=== PATIENT | male | born 1955 | race Hispanic/Latino ===

== ENCOUNTER 2017-07-26 06:27 | Day surgery (SDC) | payer BC ==
[2017-07-24 15:47] VITALS: BP 136/69
[2017-07-24 16:13] LABS: CREATININE 1.1 mg/dL (0.5-1.5); POTASSIUM 3.5 mmol/L (3.5-5.1)
[2017-07-26] VITALS (17 sets, daily range): BP systolic 109–161; BP diastolic 71–86
[~2017-07-26] VITALS: Ht 171.4 cm; Wt 76.9 kg
[2017-07-26] MEDS: CEFTRIAXONE SODIUM 1 GM IVP SCH ×2 (06:00→08:10)
[~2017-07-26 06:27] MED LIST: AMLO1CAP10 PO; ASPI-555 PO; HYDR12.54 PO; METF500T6 PO; OMEG1CAP31 PO; POTASSIUM PO; ROSU5TAB PO
[2017-07-26] MEDS ORDERED: SODIUM CHLORIDE 0.9% 1000ML 1,000 ML IV ONE (07:11)
[2017-07-26] MEDS ORDERED: DEXAMETHASONE SOD PHOSPHATE 10MG/ML 1ML VIAL ONE ×2 (07:13→09:02)
[2017-07-26] MEDS ORDERED: PROPOFOL 10 MG/ML 20ML VIAL IV ONE (07:13)
[2017-07-26] MEDS ORDERED: MIDAZOLAM HCL 1 MG/ML 2ML VIAL ONE (07:13)
[2017-07-26] MEDS ORDERED: GLYCOPYRROLATE 0.2 MG/ML 5 ML VIAL ONE ×2 (07:13→09:02)
[2017-07-26] MEDS ORDERED: LIDOCAINE PF 2% 5ML ABBOJECT ONE (07:13)
[2017-07-26] MEDS ORDERED: FENTANYL CITRATE PF 50 MCG/1 ML 2ML VIAL ONE ×2 (07:16→09:00)
[2017-07-26] MEDS ORDERED: FOLI0.8T PO (07:31)
[2017-07-26] MEDS ORDERED: MULT-1289 PO (07:31)
[2017-07-26] MEDS ORDERED: ALFU10TA18 PO (07:31)
[2017-07-26] MEDS ORDERED: ONDANSETRON HCL MDV 20ML 2 MG/ML VIAL ONE (09:02)
[2017-07-26] MEDS ORDERED: OPIUM/BELLADONNA ALKALOIDS 1 EACH SUPP.RECT RC ONE (09:17)
[2017-07-26] MEDS ORDERED: MEPERIDINE-PF 25 MG/ML SYG ONE (09:45)
[2017-07-26] MEDS ORDERED: PHENAZOPYRIDINE HCL 200 MG TABLET ONE (10:38)
== END 2017-07-26 11:40 | disposition home or self-care (01) ==
LOC: DAH 06:27
PROVIDERS: ATTEND Urology
DX: N40.1 Benign prostatic hyperplasia with lower urinary tract symptoms (principal); R35.1 Nocturia; E11.9 Type 2 diabetes mellitus without complications; I10 Essential (primary) hypertension; Z79.84 Long term (current) use of oral hypoglycemic drugs; Z79.899 Other long term (current) drug therapy; Z80.42 Family history of malignant neoplasm of prostate
CPT/HCPCS: 36415; 52648; 80048; 82948 ×2; 88304; 88305; A4218; A4340; A4354; A4358; A4510; A4600; J0696; J1100 ×2; J2001; J2175; J2250; J2704; J3010 ×2; J3490 ×2; J7030 ×2